=== PATIENT | male | born 1985 | race Two or more races ===

== ENCOUNTER 2018-05-24 01:22 | Emergency (ER) | payer MEDICAID ==
[~2018-05-24] VITALS: Ht 177.8 cm; Wt 79.4 kg
[2018-05-24] MEDS ORDERED: AMYL1CAP56 PO (01:37)
[2018-05-24] MEDS ORDERED: LANTUS SUBCUT (01:37)
[2018-05-24] MEDS ORDERED: ZOLP10TA2 PO (01:37)
[2018-05-24] MEDS ORDERED: BUSP10TA3 PO (01:37)
[2018-05-24] MEDS ORDERED: QUET300T2 PO (01:37)
--- NOTE | 2018-05-24 01:38 | NUR ---
DR. LOCKHART AT BEDSIDE FOR MSE.
[2018-05-24] MEDS ORDERED: OXYCODONE/APAP 5-325 MG TABLET ONE (02:04)
--- NOTE | 2018-05-24 02:05 | NUR ---
VERBAL ORDER RECEIVED FOR PERCOCET 5/325 X 2 TABLETS. GIVEN.
[2018-05-24 02:06] LABS: BASOPHILS # (AUTO) 0.1 K/uL (0.0-8.0); BASOPHILS % (AUTO) 1.2 % (0.0-2.0); EOSINOPHILS % (AUTO) 0.9 % (0.0-7.0); HEMATOCRIT 29.6 % (36.7-47.1); HEMOGLOBIN 9.5 g/dL (12.5-16.3); LYMPHOCYTES # (AUTO) 1.1 K/uL (20.0-40.0); LYMPHOCYTES % (AUTO) 22.5 % (20.5-51.5); MEAN CORPUSCULAR HEMOGLOBIN 26.1 uug (23.8-33.4); MEAN CORPUSCULAR HGB CONC 32 g/dL (32.5-36.3); MONOCYTES # (AUTO) 0.4 K/uL (2.0-10.0); MONOCYTES % (AUTO) 7.3 % (0.0-11.0); NEUTROPHILS # (AUTO) 3.4 K/uL (1.8-8.9); NEUTROPHILS % (AUTO) 68.1 % (38.5-71.5); PLATELET COUNT (AUTO) 593 K/uL (152-348); RED BLOOD CELL COUNT(AUTO) 3.65 MIL/uL (4.06-5.63)
[2018-05-24 02:13] LABS: *BILIRUBIN,URIN NEGATIVE (NEGATIVE); *BLOOD, URINE NEGATIVE (NEGATIVE); *CLARITY,URINE CLEAR (CLEAR); *KETONES,URINE NEGATIVE (NEGATIVE); *PROTEIN,URINE NEGATIVE (NEGATIVE); *UROBILINOGEN,URINE 0.2 E.U./dl (NORMAL); LEUKOCYTE ESTERASE ,URINE NEGATIVE (NEGATIVE); NITRITE, URINE NEGATIVE (NEGATIVE)
[2018-05-24 02:17] LABS: *COLOR,URINE STRAW (YELLOW); UGLUCOSE 2+ (NEGATIVE)
[2018-05-24 02:20] LABS: BACTERIA,URINE NONE SEEN /HPF (NONE SEEN); RBC,URINE 0-3 /HPF (0-3); SQUAMOUS EPITHELIAL CELL,UR NONE SEEN /HPF (NONE SEEN); WBC,URINE NONE SEEN /HPF (0-3)
[2018-05-24 02:21] LABS: CREATININE 1.2 mg/dL (0.6-1.3); POTASSIUM 5.8 mmol/L (3.5-5.1)
[2018-05-24] MEDS ORDERED: POTASSIUM CHLORIDE 20 MEQ TAB.PRT.SR ONE (02:27)
[2018-05-24 02:28] LABS: BILIRUBIN,DIRECT 0.1 mg/dL (0.0-0.2); BILIRUBIN,TOTAL 0.3 mg/dL (0.2-1.0); TOTAL PROTEIN, SERUM 8.9 g/dL (6.4-8.2)
[2018-05-24] MEDS ORDERED: INSULIN REGULAR, HUMAN 300 UNIT/3 ML VIAL ONE (02:28)
--- NOTE | 2018-05-24 02:29 | NUR ---
CRITCAL VALUE RECEIVED, GLUCOSE 696MD/DL, DR. LOCKHART NOTIFIED. ORDER FOR 20 UNITS OF REGULAR INSULIN SQ AND K DUR 20MEQ PO, GIVEN
[2018-05-24] MEDS ORDERED: OXYCODONE/APAP 5-325 MG TABLET PO ONE (02:45)
[2018-05-24] MEDS ORDERED: POTASSIUM CHLORIDE 20 MEQ TAB.PRT.SR PO ONE (02:45)
[2018-05-24] MEDS ORDERED: INSULIN REGULAR, HUMAN 300 UNIT/3 ML VIAL SQ ONE (02:45)
--- NOTE | 2018-05-24 02:59 | NUR ---
Patient discharged to home in stable conditon. Written and verbal after care instructions given. Patient verbalizes understanding of instructions. PATIENT LEFT WITH STABLE GAIT.
[2018-05-24 03:00] VITALS: BP 151/93
== END 2018-05-24 03:00 | disposition home or self-care (01) ==
LOC: ER 01:25
DX: G89.29 Other chronic pain (principal); R10.84 Generalized abdominal pain; F11.20 Opioid dependence, uncomplicated; E10.65 Type 1 diabetes mellitus with hyperglycemia; F17.290 Nicotine dependence, other tobacco product, uncomplicated; F15.10 Other stimulant abuse, uncomplicated; Z88.1 Allergy status to other antibiotic agents; Z88.8 Allergy status to other drugs, medicaments and biological substances; Z79.4 Long term (current) use of insulin; Z79.899 Other long term (current) drug therapy
CPT/HCPCS: 36415; 74021; 80048; 80076; 81001; 83690; 85025; 96372; 99284; 99406; J1815; A4663